=== PATIENT | female | born 2000 | race Caucasian/White ===

== ENCOUNTER 2019-04-29 11:53 | Emergency (ER) | payer MEDICARE ==
[2019-04-29] MEDS ORDERED: METOCLOPRAMIDE HCL 10 MG TABLET PO ONE (12:43)
--- NOTE | 2019-04-29 12:51 | ER Document Report ---
ED Medical Screen (RME) - General Chief Complaint: Abdominal Pain Stated Complaint: BLOOD IN URINE Time Seen by Provider: 04/29/19 12:40 - HPI Notes: 04/29/19 12:54 18-year-old female presents to the emergency room for complaints of nausea vomiting, severe headache, hematuria for the last 3 weeks has become progressively worse. Patient is already taking Zofran and omeprazole for history of H. pylori when she was in [place]. Patient is new to the area. Denies any fevers or chills. Reports generalized abdominal pain patient states that she cannot get her flu shot. Has not been seen by primary care provider. Denies fevers but reports chills. I have greeted and performed a rapid initial assessment of this patient. A comprehensive ED assessment and evaluation of the patient, analysis of test results and completion of the medical decision making process will be conducted by additional ED providers. PHYSICAL EXAMINATION: GENERAL: Well-appearing, well-nourished and in no acute distress. HEAD: Atraumatic, normocephalic. CV: s1, s2 regular abd: generalized abd pain LUNGS: No respiratory distress Musculoskeletal: Normal range of motion NEUROLOGICAL: Normal speech, normal gait. SKIN: Warm, Dry, normal turgor, no rashes or lesions noted. - Related Data Allergies/Adverse Reactions: No Known Allergies Allergy (Unverified 04/29/19 12:38) Home Medications: zofran Past Medical History - Social History Chew tobacco use (# tins/day): No Drug Abuse: None Physical Exam - Vital signs Vitals: Temp Pulse Resp BP Pulse Ox 97.6 F 74 18 132/76 H 99 04/29/19 12:06 04/29/19 12:06 04/29/19 12:06 04/29/19 12:06 04/29/19 12:06 Course - Vital Signs Vital signs: Temp Pulse Resp BP Pulse Ox 97.6 F 74 18 132/76 H 99 04/29/19 12:38 04/29/19 12:38 04/29/19 12:38 04/29/19 12:38 04/29/19 12:38
[2019-04-29 13:26] LABS: APPEARANCE,URINE CLEAR; BILIRUBIN,URINE NEGATIVE (NEGATIVE); COLOR,URINE YELLOW; GLUCOSE, URINE NEGATIVE (NEGATIVE); KETONES,URINE NEGATIVE (NEGATIVE); LEUKOCYTE ESTERASE,URINE NEGATIVE (NEGATIVE); NITRITE,URINE NEGATIVE (NEGATIVE); PROTEIN,URINE NEGATIVE (NEGATIVE); URINE SPECIFIC GRAVITY 1.028; UROBILINOGEN,URINE NEGATIVE mg/dL (<2.0)
[2019-04-29 13:28] LABS: ABSOLUTE EOSINOPHILS # (AUTO) 0.2 10^3/uL (0.0-0.6); ABSOLUTE LYMPHOCYTES (AUTO) 3.1 10^3/uL (0.5-4.7); ABSOLUTE MONOCYTES (AUTO) 0.6 10^3/uL (0.1-1.4); BASOPHILS % (AUTO) 0.4 % (0-2); EOSINOPHILS % (AUTO) 1.4 % (0-6); HEMATOCRIT 39.3 % (36.0-47.0); HEMOGLOBIN 13.1 g/dL (12.0-15.5); LYMPHOCYTES % (AUTO) 25.8 % (13-45); MEAN CORPUSCULAR HEMOGLOBIN 26.5 pg (27.0-33.4); MEAN CORPUSCULAR HGB CONC 33.3 g/dL (32.0-36.0); MEAN CORPUSCULAR VOLUME 80 fl (80-97); MONOCYTES % (AUTO) 5.3 % (3-13); PLATELET COUNT 362 10^3/uL (150-450); RED BLOOD COUNT 4.94 10^6/uL (3.72-5.28); RED CELL DISTRIBUTION WIDTH 14.4 % (11.5-14.0); SEGMENTED NEUTROPHILS % (AUTO) 67.1 % (42-78); TOTAL CELLS COUNTED % (AUTO) 100 %; WHITE BLOOD COUNT 11.9 10^3/uL (4.0-10.5)
[2019-04-29 13:47] LABS: ALBUMIN 4.3 g/dL (3.5-5.0); ALKALINE PHOSPHATASE 123 U/L (38-126); ANION GAP 10 (5-19); ASPARTATE AMINO TRANSFERASE 24 U/L (14-36); BILIRUBIN,DIRECT 0.2 mg/dL (0.0-0.4); BILIRUBIN,TOTAL 0.3 mg/dL (0.2-1.3); BLOOD UREA NITROGEN 12 mg/dL (7-20); CARBON DIOXIDE 27 mmol/L (22-30); CHLORIDE 104 mmol/L (98-107); GLUCOSE 89 mg/dL (75-110); POTASSIUM 4.4 mmol/L (3.6-5.0); TOTAL PROTEIN 7.7 g/dL (6.3-8.2)
--- NOTE | 2019-04-29 14:30 | ER Document Report ---
ED General - General Chief Complaint: Abdominal Pain Stated Complaint: BLOOD IN URINE Time Seen by Provider: 04/29/19 12:40 Primary Care Provider: [facility] [Provider Group] - Follow up in 1 week SAM SENA MD [NO LOCAL MD] - Follow up in 1 week (for Urology follow up) CECY OWEN MD [ACTIVE STAFF] - Follow up in 1 week (for GI follow up) - [facility] Notes: 18-year-old female to the emergency department with complaints of generalized abdominal pain, nausea, vomiting, hematuria for the past 3 weeks. She states that she just moved to the area from [place]. About a month ago she was marie gnosed with H. pylori and put on antibiotics as well as antacids. She continues to take antacids but is completed her antibiotics. She states that she has a little bit of burning with urination and frequency but denies any fevers, chills. She denies any chest pain or shortness of breath. She denies chance for . She denies frequent history of urinary tract infections. She denies any concern for STD. She denies any vaginal discharge or vaginal bleeding. - Related Data Allergies/Adverse Reactions: No Known Allergies Allergy (Unverified 04/29/19 12:38) Home Medications: zofran Past Medical History - General Information source: Patient - Social History Smoking Status: Never Smoker Chew tobacco use (# tins/day): No Drug Abuse: None Lives with: Family Family History: Reviewed & Not Pertinent Patient has suicidal ideation: No Patient has homicidal ideation: No Review of Systems - Review of Systems Constitutional: denies: Chills, Fever EENT: No symptoms reported Cardiovascular: denies: Chest pain, Palpitations, Dyspnea, Syncope, Dizziness Respiratory: denies: Cough, Short of breath Gastrointestinal: Abdominal pain, Nausea, Vomiting. denies: Diarrhea Genitourinary: Dysuria, Frequency, Hematuria Female Genitourinary: denies: Vaginal discharge, Vaginal bleeding Musculoskeletal: No symptoms reported Skin: No symptoms reported Hematologic/Lymphatic: No symptoms reported Neurological/Psychological: No symptoms reported -: Yes All other systems reviewed and negative Physical Exam - Vital signs Vitals: Temp Pulse Resp BP Pulse Ox 97.6 F 74 18 132/76 H 99 04/29/19 12:06 04/29/19 12:06 04/29/19 12:06 04/29/19 12:06 04/29/19 12:06 Interpretation: Normal - General General appearance: Appears well, Alert In distress: None - HEENT Head: Normocephalic, Atraumatic Eyes: Normal Pupils: PERRL - Respiratory Respiratory status: No respiratory distress Chest status: Nontender Breath sounds: Normal. No: Rales, Rhonchi, Stridor, Wheezing Chest palpation: Normal - Cardiovascular Rhythm: Regular Heart sounds: Normal auscultation Murmur: No - Abdominal Inspection: Obese Distension: No distension Bowel sounds: Normal Tenderness: Tender - Mild diffuse generalized abdominal pain with palpation with no focal tenderness to McBurney's point. Negative Garcia sign no guarding and no rebound. No: McBurney's point, Garcia's sign, Guarding, Rebound Organomegaly: No organomegaly - Back Back: Normal, Nontender. No: CVA tenderness - Neurological Neuro grossly intact: Yes Cognition: Normal Orientation: AAOx4 Agustina Coma Scale Eye Opening: Spontaneous Agustina Coma Scale Verbal: Oriented Agustina Coma Scale Motor: Obeys Commands Agustina Coma Scale Total: 15 Speech: Normal Motor strength normal: LUE, RUE, LLE, RLE Sensory: Normal - Psychological Associated symptoms: Normal affect, Normal mood - Skin Skin Temperature: Warm Skin Moisture: Dry Skin Color: Normal Course - Re-evaluation Re-evalutation: Impression: Nausea and vomiting, generalized abdominal pain. Lab work is very reassuring and CT does not show any acute abnormalities. Urinalysis is not that impressive but will send for your and culture. We will send home with antiemetics. We will have her follow-up with GI and . Patient agrees with the plan. Gave strict return precautions. - Vital Signs Vital signs: Temp Pulse Resp BP Pulse Ox 97.4 F 80 15 117/68 98 04/29/19 17:43 04/29/19 17:43 04/29/19 17:43 04/29/19 17:43 04/29/19 17:43 - Laboratory Result Diagrams: 04/29/19 12:55 04/29/19 12:55 Laboratory results interpreted by me: 04/29/19 12:55 WBC 11.9 H MCH 26.5 L RDW 14.4 H - Diagnostic Test Radiology reviewed: Image reviewed, Reports reviewed Discharge - Discharge Clinical Impression: Generalized abdominal pain Hematuria Qualifiers: Hematuria type: unspecified type Qualified Code(s): R31.9 - Hematuria, unspecified Vomiting Qualifiers: Vomiting type: unspecified Vomiting Intractability: non-intractable Nausea presence: with nausea Qualified Code(s): R11.2 - Nausea with vomiting, unspecified Condition: Stable Disposition: HOME, SELF-CARE Instructions: Abdominal Pain ([facility]), Vomiting ([facility]) Additional Instructions: Take medicines as prescribed. return if worsening symptom. Follow up with GI and Urology. Await Urine culture results. Prescriptions: Promethazine HCl [Phenergan 25 mg Tablet] 1 tab PO Q6H PRN #10 tablet PRN Reason: Referrals: [facility] [Provider Group] - Follow up in 1 week CECY OWEN MD [ACTIVE STAFF] - Follow up in 1 week (for GI follow up) SAM SENA MD [NO LOCAL MD] - Follow up in 1 week (for Urology follow up)
[2019-04-29] MEDS ORDERED: NORMAL SALINE 1000 ML 1,000 ML IV ONE (14:39)
[2019-04-29] MEDS ORDERED: KETOROLAC TROMETHAMINE INJ/PF 30 MG/1 ML SDV IV ONE (14:39)
[2019-04-29] MEDS ORDERED: ONDANSETRON HCL INJ/PF 4 MG/2 ML SDV IV ONE (14:40)
[2019-04-29] MEDS ORDERED: MORPHINE SULFATE 10 MG/ML INJ IV ONE (16:18)
--- NOTE | 2019-04-29 16:46 | RADIOLOGY REPORT (SQ) ---
EXAM DESCRIPTION: CT ABD/PELVIS WITH IV ONLY COMPLETED DATE/TIME: 04/29/2019 4:29 pm REASON FOR STUDY: n/v abd pain, worse in last 24 hr. on/off x3m COMPARISON: None. TECHNIQUE: CT scan of the abdomen and pelvis performed using helical scanning technique with dynamic intravenous contrast injection. No oral contrast. Images reviewed with lung, soft tissue, and bone windows. Reconstructed coronal and sagittal MPR images reviewed. Delayed images for evaluation of the urinary system also acquired. All images stored on PACS. All CT scanners at this facility use dose modulation, iterative reconstruction, and/or weight based d osing when appropriate to reduce radiation dose to as low as reasonably achievable (ALARA). [facility]: Dose Right [facility]: CareDose [facility]: Dose Right [facility]: Teradose 4D [facility]: Epos CONTRAST TYPE AND DOSE: contrast/concentration: Isovue 350.00 mg/ml; Total Contrast Delivered: 99.0 ml; Total Saline Delivered: 22.0 ml RENAL FUNCTION: GFR > 60. RADIATION DOSE: CT Rad equipment meets quality standard of care and radiation dose reduction techniq ues were employed. CTDIvol: 14.7 - 19.0 mGy. DLP: 1790 mGy-cm.. LIMITATIONS: None. FINDINGS: LOWER CHEST: No significant findings. No nodules or infiltrates. LIVER: Normal size. No masses. No dilated ducts. SPLEEN: Normal size. No focal lesions. PANCREAS: No masses. No significant calcifications. No adjacent inflammation or peripancreatic fluid collections. Pancreatic duct not dilated. GALLBLADDER: No identified stones by CT criteria. No inflammatory changes to suggest cholecystitis. ADRENAL GLANDS: No significant masses or asymmetry. RIGHT KIDNEY AND URETER: No solid masses. No significant calcifications. No hydronephrosis or hyd roureter. LEFT KIDNEY AND URETER: No solid masses. No significant calcifications. No hydronephrosis or hydr oureter. AORTA AND VESSELS: No aneurysm. No dissection. Renal arteries, SMA, celiac without stenosis. RETROPERITONEUM: No retroperitoneal adenopathy, hemorrhage or masses. BOWEL AND PERITONEAL CAVITY: Mild diverticulosis descending and sigmoid colon. No masses or inflamma tory changes. No free fluid or peritoneal masses. APPENDIX: Not visualized. PELVIS: No mass. No free fluid. Normal bladder. ABDOMINAL WALL: No masses. No hernias. BONES: No significant or acute findings. OTHER: No other significant finding. IMPRESSION: Diverticulosis without evidence of diverticulitis. TECHNICAL DOCUMENTATION: JOB ID: [id number] Quality ID # [id number]: Final reports with documentation of one or more dose reduction techniques (e.g., Au tomated exposure control, adjustment of the mA and/or kV according to patient size, use of iterative reconstruction technique) 2010 [employer]- All Rights Reserved Reading location - IP/workstation name: [facility]
[2019-04-29 17:45] VITALS: BP 117/68
== END 2019-04-29 17:43 | disposition home or self-care (01) ==
LOC: ER 11:53
DX: R10.84 Generalized abdominal pain (principal); R11.2 Nausea with vomiting, unspecified; R31.9 Hematuria, unspecified
CPT/HCPCS: 99284; 96361; 96374; 96375; 36415; 87086; 83690; 85025; 81025; 80053; 81001; 74177; J1885; A9270; J2270; J2405; J7030

== ENCOUNTER 2019-06-09 19:16 | Emergency (ER) | payer MEDICARE, MEDICAID ==
[2019-06-09 20:37] LABS: APPEARANCE,URINE CLOUDY; BILIRUBIN,URINE NEGATIVE (NEGATIVE); COLOR,URINE YELLOW; GLUCOSE, URINE NEGATIVE (NEGATIVE); KETONES,URINE NEGATIVE (NEGATIVE); PROTEIN,URINE 100 mg/dL (NEGATIVE); URINE SPECIFIC GRAVITY 1.026; UROBILINOGEN,URINE NEGATIVE mg/dL (<2.0)
[2019-06-09] MEDS ORDERED: PHENAZOPYRIDINE HCL 200 MG TABLET PO ONE (20:51)
[2019-06-09] MEDS ORDERED: CEPHALEXIN 500 MG CAPSULE PO ONE (20:52)
--- NOTE | 2019-06-09 20:57 | ER Document Report ---
ED Medical Screen (RME) - General Chief Complaint: Urinary Problem Stated Complaint: PAINFUL URINATION Time Seen by Provider: 06/09/19 20:22 Primary Care Provider: MANUELA NOBLE MD [Primary Care Provider] - Follow up as needed Mode of Arrival: Ambulatory Information source: Patient Notes: Otherwise healthy 18-year-old female presenting to the emergency department chief complaint of dysuria. Patient denies any abdominal pain, nausea, vomiting or fever. She reports that she thinks she has a urinary tract infection. She states that symptoms have been present for the past 1 to 2 days. - Related Data Allergies/Adverse Reactions: No Known Allergies Allergy (Verified 06/10/19 08:29) Home Medications: anxiety med Past Medical History - General Information source: Patient - Social History Family history: Reviewed & Not Pertinent - Medical History Medical History: Negative Surgical Hx: Negative Review of Systems - Review of Systems Constitutional: No symptoms reported EENT: No symptoms reported Cardiovascular: No symptoms reported Respiratory: No symptoms reported Gastrointestinal: No symptoms reported Genitourinary: Dysuria Female Genitourinary: No symptoms reported Musculoskeletal: No symptoms reported Skin: No symptoms reported Hematologic/Lymphatic: No symptoms reported Neurological/Psychological: No symptoms reported Physical Exam - Vital signs Vitals: Temp Pulse Resp BP Pulse Ox 98.1 F 80 18 133/85 H 100 06/09/19 19:30 06/09/19 19:30 06/09/19 19:30 06/09/19 19:30 06/09/19 19:30 - Notes Notes: PHYSICAL EXAMINATION: GENERAL: Well-appearing, well-nourished and in no acute distress. HEAD: Atraumatic, normocephalic. EYES: Pupils equal round and reactive to light, extraocular movements intact, conjunctiva are normal. ENT: Nares patent, oropharynx clear without exudates. Moist mucous membranes. NECK: Normal range of motion, supple without lymphadenopathy LUNGS: Breath sounds clear to auscultation bilaterally and equal. No wheezes rales or rhonchi. HEART: Regular rate and rhythm without murmurs ABDOMEN: Soft, nontender, nondistended abdomen. No guarding, no rebound. No masses appreciated. Female : deferred Musculoskeletal: Normal range of motion, no pitting or edema. No cyanosis. NEUROLOGICAL: Cranial nerves grossly intact. Normal speech, normal gait. Normal sensory, motor exams PSYCH: Normal mood, normal affect. SKIN: Warm, Dry, normal turgor, no rashes or lesions noted. Course - Re-evaluation Re-evalutation: Urinalysis consistent with urinary tract infection. Patient appears well, nontoxic, will start on oral antibiotics. ED return precautions discussed, patient understands the need to push fluids. Tylenol or ibuprofen for any fever pain. - Vital Signs Vital signs: Temp Pulse Resp BP Pulse Ox 98.3 F 70 15 130/85 H 99 06/09/19 21:06 06/09/19 21:06 06/09/19 21:06 06/09/19 21:06 06/09/19 21:06 - Laboratory Laboratory results interpreted by me: 06/09/19 20:02 Urine Protein 100 H Urine Blood LARGE H Leukocyte Esterase Rfl SMALL H Doctor's Discharge - Discharge Clinical Impression: UTI (urinary tract infection) Qualifiers: Urinary tract infection type: site unspecified Hematuria presence: with hematuria Qualified Code(s): N39.0 - Urinary tract infection, site not specified Condition: Stable Disposition: HOME, SELF-CARE Additional Instructions: Your urine shows findings consistent with a urinary tract infection. Please take all the antibiotics as directed even if your symptoms have improved. Please follow-up with your primary care physician as needed. Return to emergency room if you develop fever >101F, persistent vomiting, become lethargic, have severe pain in your sides, or any other symptoms that are concerning to you. Prescriptions: Cephalexin [Keflex] 500 mg PO BID #14 capsule Phenazopyridine HCl [Pyridium 100 Mg Tablet] 100 mg PO TID #6 tablet Referrals: MANUELA NOBLE MD [Primary Care Provider] - Follow up as needed
[2019-06-09 21:07] VITALS: BP 130/85
== END 2019-06-09 21:06 | disposition home or self-care (01) ==
LOC: ER 19:16
DX: N39.0 Urinary tract infection, site not specified (principal); R30.0 Dysuria
CPT/HCPCS: 99283; 81001; A9270 ×2; J3490

== ENCOUNTER 2019-06-10 08:25 | Emergency (ER) | payer MEDICARE, MEDICAID ==
[2019-06-10] MEDS ORDERED: IBUPROFEN 800 MG TABLET PO ONE (09:47)
[2019-06-10] MEDS ORDERED: ONDANSETRON 4 MG TAB.RAPDIS PO ONE (09:47)
[2019-06-10 10:46] LABS: A TYPE INFLUENZA AG NEGATIVE (NEGATIVE); B INFLUENZA AG NEGATIVE (NEGATIVE)
[2019-06-10] MEDS ORDERED: ONDANSETRON ODT 4 MG TAB (6 TAB/ER DISP) PO PRN (10:49)
--- NOTE | 2019-06-10 10:52 | ER Document Report ---
HPI - HPI Patient complains to provider of: n/v body aches Time Seen by Provider: 06/10/19 09:40 Onset: This morning Onset/Duration: Sudden Quality of pain: Achy Pain Level: 2 Context: 18-year-old female presents emergency department with complaints of nausea vomiting body aches. Patient was evaluated and treated for UTI yesterday in this emergency department. She was treated with Keflex. Patient took a dose last night without any problems. She reports she took a dose this morning and vomited. She also reports body aches. She denies fever vomiting diarrhea. She reports it hurts just a little bit when she voids still. Associated Symptoms: Body/muscle aches, Vomiting Exacerbated by: Denies Relieved by: Denies Similar symptoms previously: Yes Recently seen / treated by doctor: Yes - REPRODUCTIVE Reproductive: DENIES: : Past Medical History - General Information source: Patient - Social History Smoking Status: Unknown if Ever Smoked Chew tobacco use (# tins/day): No Frequency of alcohol use: None Drug Abuse: None Lives with: Family Family History: Reviewed & Not Pertinent Patient has suicidal ideation: No Patient has homicidal ideation: No - Medical History Medical History: Negative Surgical Hx: Negative Vertical Provider Document - CONSTITUTIONAL Agree With Documented VS: Yes Exam Limitations: No Limitations General Appearance: WD/WN, No Apparent Distress - INFECTION CONTROL TRAVEL OUTSIDE OF THE [place] IN LAST 30 DAYS: No - HEENT HEENT: Atraumatic, Normocephalic - NECK Neck: Normal Inspection, Supple. negative: Lymphadenopathy-Left, Lymphadenopathy-Right - RESPIRATORY Respiratory: Breath Sounds Normal, No Respiratory Distress - CARDIOVASCULAR Cardiovascular: Regular Rate, Regular Rhythm - GI/ABDOMEN Gastrointestinal: Abdomen Soft, Abdomen Non-Tender - BACK Back: Normal Inspection. negative: CVA Tenderness-Right, CVA Tenderness-Left - MUSCULOSKELETAL/EXTREMETIES Musculoskeletal/Extremeties: MAEW, FROM - NEURO Level of Consciousness: Awake, Alert, Appropriate Motor/Sensory: No Motor Deficit - DERM Integumentary: Warm, Dry Course - Re-evaluation Re-evalutation: 06/10/19 19:02 Patient received Motrin and Zofran. Flu test was negative. Patient is drinking p.o. fluids without complaints. Reports she feels much better. She was instructed to not take the medication on empty stomach. She was also instructed on Zofran for the next 24 hours push fluids stay hydrated return for concerns. She verbalized understanding to all instructions. Laboratory 06/10/19 10:05 Influenza A (Rapid) NEGATIVE Influenza B (Rapid) NEGATIVE - Vital Signs Vital signs: Temp Pulse Resp BP Pulse Ox 97.3 F 94 16 134/81 H 100 06/10/19 08:29 06/10/19 08:29 06/10/19 08:29 06/10/19 08:29 06/10/19 08:29 Discharge - Discharge Clinical Impression: Body aches Nausea & vomiting Qualifiers: Vomiting type: unspecified Vomiting Intractability: non-intractable Qualified Code(s): R11.2 - Nausea with vomiting, unspecified Condition: Stable Disposition: HOME, SELF-CARE Instructions: Antinausea Medication ([facility]), Vomiting ([facility]) Additional Instructions: *You have been evaluated for nausea/vomiting *Your flu test was negative *Take medication as prescribed *Ensure adequate fluid intake *Follow up with [facility] Friday as scheduled *Return to ED for worsening condition, changes, needs Referrals: MANUELA NOBLE MD [Primary Care Provider] - 06/14/19
[2019-06-10 11:07] VITALS: BP 116/60
== END 2019-06-10 11:08 | disposition home or self-care (01) ==
LOC: ER 08:25
DX: R11.2 Nausea with vomiting, unspecified (principal); M79.10 Myalgia, unspecified site
CPT/HCPCS: 87804; A9270 ×3; S0119